=== PATIENT | female | born 1985 | race Caucasian/White ===

== ENCOUNTER → 2019-12-09 15:44 | Outpatient (CLI) | payer OTHER, SELFPAY ==
[2019-12-09 16:13] LABS: Basophils % 0.7 % (0.1-2.0); Eosinophils # 0.1 K/mm3 (0.0-0.4); Eosinophils % 1.9 % (0.1-12.0); Hematocrit 41.3 % (37.0-47.0); Hemoglobin 13.5 g/dL (12.2-16.2); Lymphocytes # 1.6 K/mm3 (0.7-4.5); Mean Corpuscular HGB Conc 32.6 g/dL (31.8-35.4); Mean Corpuscular Volume 88.9 fl (81-99); Mean Platelet Volume 7.7 fl (7.4-10.4); Monocytes # 0.2 K/mm3 (0.1-1.0); Monocytes % 4.4 % (1.7-9.3); Neutrophils # 3.4 K/mm3 (1.8-7.8); Platelet Count 243 K/mm3 (142-424); Red Blood Count 4.65 M/mm3 (4.20-5.40); Red Cell Distribution Width 13.6 % (11.5-17.5); White Blood Count 5.3 K/mm3 (4.8-10.8)
[2019-12-11 20:42] LABS: EBV Ab VCA, IgG <18.0 U/mL (0.0-17.9); EBV Ab VCA, IgM <36.0 U/mL (0.0-35.9); EBV Nuclear Antigen Ab, IgG <18.0 U/mL (0.0-17.9)
== END ==
PROVIDERS: PCP Nurse Practitioner Family; Visit Provider Nurse Practitioner Family
DX: J02.9 Acute pharyngitis, unspecified (principal); R68.89 Other general symptoms and signs; R53.83 Other fatigue
CPT/HCPCS: 36415; 85025; 86664; 86665; 87275; 87276

== ENCOUNTER 2020-03-05 11:01 | Emergency (ER) | payer OTHER, SELFPAY ==
[2020-03-05 11:02] VITALS: BP 158/85; PULSE 113; RESP 20; TEMP 36.4; O2SAT 100; BMI 22.2
--- NOTE | 2020-03-05 11:21 | CT_ITS ---
PROCEDURE: CT ABDOMEN PELVIS WO CON CLINICAL INDICATION: kidney stone r/o Right flank pain, lower abdominal pain with vomiting, history kidney stones COMPARISON: No exams were available for comparison TECHNIQUE: Axial images obtained with sagittal and coronal reformats. All CT scans at the facility use one or more dose reduction, viz: automated exposure control, ma/kV adjustment per patient size (including targeted exams where dose is matched to indication, i.e. head), or iterative reconstruction technique. FINDINGS: LOWER THORAX: There is a noncalcified 7 mm nodule in the right middle lobe for which six-month follow-up is suggested. There is mild thickening of the pericardium ABDOMEN & PELVIS: The liver, spleen, adrenal glands have an unremarkable appearance. There are few punctate right renal calculi measuring up to 2 mm in the mid polar region. There is a 2-3 mm calculus within the urinary bladder just to the left of midline. This may be due to recently passed stone. This is also in the region of the left trigone and could be due to a tiny stone at the ureterovesical junction. There is a small amount of fluid in the pelvis. No evidence of appendicitis intestinal obstruction free air or diverticulitis. There is increased soft tissue density in the region of the pancreatic head. This may only be due to a combination of bone opacification of the duodenum and overlying superior mesenteric vein and portal vein. Nonemergent study with pancreatic protocol may confirm this finding if clinically warranted. No acute bony anomalies. IMPRESSION: 1. There is a small stone in the left paracentral aspect of the urinary bladder measuring 2-3 mm and could be due to recently passed stone or a tiny stone at the ureterovesical junction. No hydronephrosis. 2. Punctate right nephrolithiasis 3. Mild amount of fluid in the pelvis 4. Fullness in the pancreatic head which may be better evaluated with nonemergent pancreatic protocol exam Dictated by: Farrukh Jung MD 03/05/2020 12:36 Electronically signed by Farrukh Jung MD in [place] 03/05/2020 12:36
--- NOTE | 2020-03-05 11:23 | PC.NURSE ---
PT STATES THAT SHE IS UNABLE TO URINATE AT THIS TIME AND REQUESTS A LITTLE TIME. A SERUM PREG TEST IS BEING PUT IN AT THIS TIME SO PT CAN HAVE ABD CT.
[2020-03-05 11:28] LABS: Basophils # 0.1 K/mm3 (0-0.2); Basophils % 0.9 % (0.1-2.0); Eosinophils # 0.3 K/mm3 (0.0-0.4); Eosinophils % 3.9 % (0.1-12.0); Hematocrit 40.8 % (37.0-47.0); Hemoglobin 13.9 g/dL (12.2-16.2); Lymphocytes # 2.8 K/mm3 (0.7-4.5); Lymphocytes % 39.3 % (10-50); Mean Corpuscular Hemoglobin 29.6 pg (27.0-31.2); Mean Corpuscular Volume 86.9 fl (81-99); Mean Platelet Volume 7.9 fl (7.4-10.4); Monocytes # 0.2 K/mm3 (0.1-1.0); Monocytes % 3.2 % (1.7-9.3); Neutrophils # 3.8 K/mm3 (1.8-7.8); Neutrophils % 52.7 % (37.0-80.0); Platelet Count 382 K/mm3 (142-424); Red Blood Count 4.69 M/mm3 (4.20-5.40); White Blood Count 7.1 K/mm3 (4.8-10.8)
[2020-03-05 11:31] LABS: Chloride 105 mmol/L (98-107)
[2020-03-05 11:32] LABS: Potassium 3.7 mmoL/L (3.5-5.1); Sodium 135 mmol/L (136-145)
[2020-03-05 11:34] LABS: Alanine Aminotransferase 17 U/L (12-78); Alkaline Phosphatase 50 U/L (38-126); Amylase 43 U/L (30-110); Anion Gap 9.7 mEq/L (5-15); Aspartate Amino Transferase 22 U/L (14-36); Bilirubin,Total 0.4 mg/dl (0.2-1.3); Blood Urea Nitrogen 15 mg/dl (7-17); Carbon Dioxide 24 mmol/L (22.0-30.0); Creatinine Clearance Estimated 125 mL/min (50-200); Estimated Glomerular Filt Rate 95 ml/min (>60); GFR (African American) 115 ML/MIN (>60)
[2020-03-05 11:35] LABS: Albumin Level 4.4 g/dl (3.5-5.0); Albumin/Globulin Ratio 1.7 (1.1-1.8); Calcium 9.5 mg/dl (8.4-10.2); Globulin 2.6 g/dL (1.3-3.2); Glucose 126 mg/dl (74-100); Lipase 54 U/L (23-300)
--- NOTE | 2020-03-05 11:40 | HMH.EDNVD ---
ED Disposition Clinical Impression: Renal colic on right side Disposition: Home, Self-Care Condition on Discharge: Good Instructions: DI for Kidney Stones Additional Instructions: fluids and see urology and use meds as needed Prescriptions: Phenazopyridine HCl [Pyridium 200mg Tablet] 200 pow PO TID #6 tab Prescription Printed Ketorolac Tromethamine [Toradol 10mg tablet] 10 mg PO Q6H 5 Days #10 tab Prescription Printed Referrals: Provider,MD Jovan [Primary Care Provider] - Rah De Paz MD [Staff Physician] - - Critical Care Critical Care Time: No Attestation: On , the high probability of a clinically significant, sudden or life threatening deterioration of the following system(s) required my full and direct attention, intervention and personal management. The time I documented below is in addition to time spent performing reported procedures but includes the following listed in this critical care notation. Medical Decision Making - Medical Records Medical records reviewed: Yes: I reviewed the patient's medical records. - Ian Inquiry Pt receiving controlled substance: No Vital Signs: 03/05/20 11:02 Temperature 97.6 F Temperature Source Oral Pulse Rate [Right] 113 H Respiratory Rate 20 Blood Pressure [Right Arm] 158/85 H Blood Pressure Mean [Right Arm] 109 02 Sat by Pulse Oximetry 100 - Lab Data Lab results reviewed: Yes: I reviewed the patient's lab results. Lab Results 03/05/20 11:15: WBC 7.1, RBC 4.69, Hgb 13.9, Hct 40.8, MCV 86.9, MCH 29.6, MCHC 34.0, RDW 14.0, Plt Count 382, MPV 7.9, Neut % (Auto) 52.7, Lymph % (Auto) 39.3, [place] % (Auto) 3.2, Eos % (Auto) 3.9, Baso % (Auto) 0.9, Neut # (Auto) 3.8, Lymph # (Auto) 2.8, [place] # (Auto) 0.2, Eos # (Auto) 0.3, Baso # (Auto) 0.1, ESR 3 03/05/20 11:15: Sodium 135 L, Potassium 3.7, Chloride 105, Carbon Dioxide 24, Anion Gap 9.7, BUN 15, Creatinine 0.70, Estimated Creat Clear 125, Estimated GFR 95, Est GFR ( Amer) 115, Glucose 126 H, Calcium 9.5, Total Bilirubin 0.4, AST 22, ALT 17, Alkaline Phosphatase 50, C-Reactive Protein 1.1, Total Protein 7.0, Albumin 4.4, Globulin 2.6, Albumin/Globulin Ratio 1.7, Amylase 43, Lipase 54 03/05/20 11:15: Serum HCG, Qual Negative 03/05/20 12:45: Urine Color Yellow, Urine Appearance Cloudy, Urine pH 6.0, Ur Specific [place] >= 1.030, Urine Protein Trace, Urine Glucose (UA) Negative, Urine Ketones Negative, Urine Blood 3+, Urine Nitrate Negative, Urine Bilirubin Negative, Urine Urobilinogen 0.2, Ur Leukocyte Esterase Negative, Urine RBC 20-50, Urine WBC None, Ur Squamous Epith Cells 20-50, Amorphous Sediment 1+, Urine Bacteria None, Urine Mucus Trace 03/05/20 12:45: Urine HCG, Qual Negative Result diagrams: 03/05/20 11:15 03/05/20 11:15 Orders (Tests/Meds): ED MEDICATIONS Generic Name Dose Route Start Last Admin Trade Name Freq PRN Reason Stop Dose Admin Acetaminophen/Codeine Phosphate 1 anna 03/05/20 13:08 Acetaminophen W/Codeine #3 Take Home Pack (6) PO 03/05/20 13:09 ONCE ONE Sodium Chloride 1,000 mls @ 999 mls/hr 03/05/20 11:30 03/05/20 11:24 Sod Chlor 0.9% 1000ml Bag IV 03/05/20 12:30 999 mls/hr .Q1H1M TIMO Administration Ketorolac Tromethamine 30 mg 03/05/20 13:07 Toradol 30mg/Ml Vial IV 03/05/20 13:08 ONCE ONE Phenazopyridine HCl 200 mg 03/05/20 13:07 Pyridium 200mg Tablet PO 03/05/20 13:08 ONCE ONE Tamsulosin HCl 0.4 mg 03/05/20 21:00 Flomax 0.4mg Capsule PO 04/04/20 20:59 HS TIMO Discontinued Medications Generic Name Dose Route Start Last Admin Trade Name Freq PRN Reason Stop Dose Admin Morphine Sulfate 4 mg 03/05/20 11:22 03/05/20 11:24 Morphine 4mg/Ml Syringe IV 03/05/20 11:23 4 mg ONCE ONE Administration Promethazine HCl 12.5 mg 03/05/20 11:21 03/05/20 11:24 Phenergan 25mg/Ml 1ml Vial IV 03/05/20 11:22 12.5 mg ONCE ONE Administration Sodium Chloride 25 ml 03/05/20 11:22 03/05/20 11:24
[2020-03-05 11:41] LABS: HCG Qualitative, Serum Negative (Negative)
[2020-03-05 11:53] LABS: Erythrocyte Sedimentation Rate 3 mm/hr (0-20)
--- NOTE | 2020-03-05 12:06 | PC.NURSE ---
Pt continues to be unable to urinate
--- NOTE | 2020-03-05 12:08 | PC.NURSE ---
Pt to CT
[2020-03-05 12:34] LABS: C-Reactive Protein 1.1 mg/L (0-4)
[2020-03-05 12:50] LABS: Microscopic, Urine URINE MICROSCOPIC (MICROSCOPIC)
[2020-03-05 12:52] LABS: Appearance,Urine CLOUDY (Clear); Bilirubin,Urine Negative (Negative); Blood, Urine 3+ (Negative); Color,Urine YELLOW (Yellow); Glucose,Urine (UA) Negative (Negative); Ketones,Urine Negative (Negative); Leukocyte Esterase,Urine Negative (Negative); Nitrate,Urine Negative (Negative); Protein,Urine TRACE (Negative); Specific Gravity, Urine >= 1.030 (1.005-1.030); Urobilinogen,Urine 0.2 EU/dl (0.2)
[2020-03-05 12:54] LABS: Urine Pregnancy, HCG Qual. Negative (Negative)
[2020-03-05 12:59] LABS: Amorphous Sediment,Urine 1+ /lpf; Mucus,Urine Trace /lpf; RBC,Urine 20-50 #/hpf (0-3); Squamous Epithelial Cell,Urine 20-50 #/hpf (0-5)
[2020-03-05 13:14] VITALS: BP 140/85; PULSE 80; RESP 18; TEMP 36.8; O2SAT 98
[2020-03-17 18:26] LABS: Ca oxalate dihydrate 20%; Composition SEE BELOW:; Specimen Type NOT PROVIDED
[2020-03-17 18:27] LABS: Photo TO FOLLOW
== END 2020-03-05 13:25 | disposition home or self-care (01) ==
PROVIDERS: Emergency Provider Emergency Medicine
DX: N23 Unspecified renal colic (principal)
CPT/HCPCS: 74176; 80053; 81001; 81025; 82150; 82370; 83690; 84703; 85025; 85651; 86140; 96365; 96375; 99283

== ENCOUNTER 2021-08-29 18:16 | Emergency (ER) | payer OTHER, SELFPAY ==
[2021-08-29 19:30] VITALS: BP 93/62; PULSE 133; RESP 20; TEMP 37.6; O2SAT 98; BMI 22.6
--- NOTE | 2021-08-29 19:38 | HMH.EDUTC ---
[facility] [place] Clinical Impression: Strep throat Disposition: Home, Self-Care Condition on Discharge: Good Instructions: Strep Throat, DI for Strep Throat Additional Instructions: Drink plenty of fluids. Take tylenol or ibuprofen for pain or fever. Take the medications as directed. Follow up with your regular doctor. GO TO THE ER FOR ANY WORSENING SYMPTOMS Quarantine until you know the results of your covid-19 test. If it is positive, the health department should call you and give you further instructions about your length of Quarantine and other things. Notify your school or workplace of your results and follow their instructions regarding return to work/school. Prescriptions: Ondansetron [Zofran 4mg ODT] 4 mg PO Q8HP PRN #20 tab PRN Reason: Nausea Prescription Printed Amoxicillin [Amoxicillin 500mg Tab] 500 mg PO TID 10 Days #30 tab Prescription Printed predniSONE [Deltasone 10mg tablet] 10 mg PO BID 3 Days #6 tab Transmission Status: Received by [facility] #[id number] Referrals: Carter Apple MD [Primary Care Provider] - Time of Disposition: 20:38 Medical Decision Making - Medical Records Medical records reviewed: No: I reviewed the patient's medical records. - Ian Inquiry Pt receiving controlled substance: No Vital Signs: 08/29/21 19:30 08/29/21 21:04 Temperature 99.7 F H 99.7 F H Temperature Source Oral Pulse Rate 133 H Pulse Rate [Right] 133 H Respiratory Rate 20 20 Blood Pressure 93/62 L Blood Pressure [Right Arm] 93/62 L Blood Pressure Mean [Right Arm] 72 02 Sat by Pulse Oximetry 98 - Lab Data Lab results reviewed: Yes: I reviewed the patient's lab results. Lab Results 08/29/21 20:06: Strep Scn Rapid [facility] Positive A 08/29/21 20:08: Chlamy pneumoniae PCR Not detected, Adenovirus (PCR) Not detected, B. pertussis DNA (PCR) Not detected, Coronavirus OC43 (PCR) Not detected, Coronavirus HKU1 (PCR) Not detected, Coronavirus 229E (PCR) Not detected, SARS-CoV-2 (PCR) Detected A, Coronavirus NL63 (PCR) Not detected, Human Metapneumovir PCR Not detected, Influenza A (H1) PCR Not detected, Influ A (H1N1/09) PCR Not detected, Influenza A (H3) PCR Not detected, Influenza Type A (PCR) Not detected, Influenza Type B (PCR) Not detected, M. pneumoniae (PCR) Not detected, Parainfluenza 1 (PCR) Not detected, Parainfluenza 2 (PCR) Not detected, Parainfluenza 3 (PCR) Not detected, Parainfluenza 4 (PCR) Not detected, RSV (PCR) Not detected, Entero/Rhino (PCR) Not detected 08/29/21 21:05: Urine Color Dark yellow, Urine Appearance Cloudy, Urine pH 5.5, Ur Specific [place] 1.025, Urine Protein Negative, Urine Glucose (UA) Negative, Urine Ketones Large, Urine Blood Negative, Urine Nitrate Negative, Urine Bilirubin 1+ A, Urine Urobilinogen 0.2, Ur Leukocyte Esterase Negative Orders (Tests/Meds): ED MEDICATIONS Discontinued Medications Generic Name Dose Route Start Last Admin Trade Name Freq PRN Reason Stop Dose Admin Acetaminophen 975 mg 08/29/21 20:25 08/29/21 20:30 Acetaminophen 325mg Tab PO 08/29/21 20:26 975 mg ONCE ONE Administration Amoxicillin 500 mg 08/29/21 20:38 08/29/21 20:55 Amoxicillin 500mg Capsule PO 08/29/21 20:39 500 mg ONCE ONE Administration [facility] [place] HPI - General Stated complaint: bodyaches, cough Time Seen by Provider: 08/29/21 19:38 Mode of Arrival: Ambulatory Source of Information: Patient Limitations: No Limitations Description of Symptoms (Recalled from Triage Doc. by RN): pt c/o body aches, chills and a cough. HEENT Symptoms (Recalled from RN notes): No Resp Symptoms (Recalled from RN notes): Yes (cough) Skin Symptoms (Recalled from RN notes): No MS Symptoms (Recalled from RN notes): No Functional Status (Recalled from RN notes): wnl - History of Present Illness Provider Complaint: She states that since last night, she has felt bad, had body aches, had a dry cough. Her 2 daughters have recently had sim
[2021-08-29 20:20] LABS: UTC Strep Screen (Rapid) Positive (Negative)
[2021-08-29 20:33] LABS: Adenovirus,PCR Not Detected (NotDetected); Bordetella Pertussis Not Detected (NotDetected); Chlamydophila Pneumoniae, PCR Not Detected (NotDetected); Coronavirus 229E Not Detected (NotDetected); Coronavirus NL63 Not Detected (NotDetected); Coronavirus OC43 Not Detected (NotDetected); Coronovirus HKU1,PCR Not Detected (NotDetected); Human Metapneumovirus Not Detected (NotDetected); Influenza A, PCR Not Detected (NotDetected); Influenza AH1, 2009 Not Detected (NotDetected); Influenza AH1, PCR Not Detected (NotDetected); Influenza AH3,PCR Not Detected (NotDetected); Influenza B, PCR Not Detected (NotDetected); Mycoplasma Pneumoniae, PCR Not Detected (NotDetected); Parainfluenza 1, PCR Not Detected (NotDetected); Parainfluenza 2, PCR Not Detected (NotDetected); Parainfluenza 3, PCR Not Detected (NotDetected); Parainfluenza 4, PCR Not Detected (NotDetected); Respiratory Syncytial Virus Not Detected (NotDetected); Rhinovirus/Enterovirus Not Detected (NotDetected)
[2021-08-29 21:04] VITALS: BP 93/62; PULSE 133; RESP 20; TEMP 37.6
[2021-08-29 21:06] LABS: Apearance,Urine Cloudy (Clear); Color,Urine Dark Yellow (Yellow); PH,Urine 5.5 (5.0-8.5)
[2021-08-29 21:07] LABS: Bilirubin,Urine 1+ (Negative); Blood, Urine Negative (Negative); Glucose,Urine (UA) Negative (Negative); Ketones,Urine Large (Negative); Protein,Urine Negative (Negative); Specific Gravity, Urine 1.025 (1.005-1.030); UTC Leukocyte Esterase,Urine Negative (Negative); UTC Nitrate,Urine Negative (Negative); Urobilinogen,Urine 0.2 EU/dl (0.2)
[2021-08-29 22:15] LABS: Coronavirus 19, PCR Detected (NotDetected)
== END 2021-08-29 21:09 | disposition home or self-care (01) ==
PROVIDERS: Emergency Provider Nurse Practitioner Family; PCP Family Medicine
DX: U07.1 COVID-19 (principal); J02.0 Streptococcal pharyngitis
CPT/HCPCS: 81003; 87581; 87632; 87798; 87880; 99203; C9803; G0463; U0003; U0005

== ENCOUNTER 2021-09-05 14:14 | Emergency (ER) | payer OTHER, SELFPAY ==
[2021-09-05] VITALS (7 sets, daily range): BP systolic 93–101; BP diastolic 56–66; PULSE 90–108; RESP 18; TEMP 36.8–37.4; O2SAT 93–96; BMI 21.9
--- NOTE | 2021-09-05 14:56 | XR_ITS ---
PROCEDURE INFORMATION: Exam: XR Chest Exam date and time: 09/05/2021 2:56 PM Age: 35 years old Clinical indication: Cough TECHNIQUE: Imaging protocol: XR of the chest. Views: 1 view. COMPARISON: No relevant prior studies available. FINDINGS: Lungs: Right lower lung airspace disease most likely representing pneumonia. Pleural spaces: Unremarkable. No pleural effusion. No pneumothorax. Heart/Mediastinum: Unremarkable. No cardiomegaly. Bones/joints: Unremarkable. IMPRESSION: Right lower lung airspace disease most likely representing pneumonia. A 6 week follow-up standing PA and lateral chest radiograph is recommended.
--- NOTE | 2021-09-05 14:58 | PC.NURSE ---
Spoke with heather from [facility] to request chest xray
--- NOTE | 2021-09-05 15:13 | HMH.EDGENADL ---
ED Disposition Clinical Impression: COVID Community acquired pneumonia Qualifiers: Laterality: right Lung location: lower lobe of lung Qualified Code(s): J18.9 - Pneumonia, unspecified organism Disposition: Home, Self-Care Condition on Discharge: Good Instructions: Pneumonia-Adult Prescriptions: Albuterol Sulfate [Albuterol Sulfate Hfa] 2 puff IH Q4HP PRN #1 each PRN Reason: Wheezing Transmission Status: Pending to [email or web address] # Albuterol Sulfate [Albuterol 0.083% 2.5mg/3mL neb] 2.5 mg IH Q6 #30 ml Transmission Status: Pending to [email or web address] # Doxycycline Monohydrate [Doxycycline [place] 100mg Tab] 100 mg PO Q12 #20 tab Transmission Status: Pending to [email or web address] # Referrals: Carter Apple MD [Primary Care Provider] - - Critical Care Critical Care Time: No Attestation: On 09/05/21, the high probability of a clinically significant, sudden or life threatening deterioration of the following system(s) required my full and direct attention, intervention and personal management. The time I documented below is in addition to time spent performing reported procedures but includes the following listed in this critical care notation. Medical Decision Making - Medical Records Medical records reviewed: Yes: I reviewed the patient's medical records. - Ian Inquiry Pt receiving controlled substance: No Vital Signs: 09/05/21 14:38 09/05/21 15:00 09/05/21 15:28 Temperature 99.3 F Temperature Source Oral Pulse Rate 102 H 101 H Pulse Rate [Right Radial] 101 H Respiratory Rate 18 Blood Pressure 101/65 L 100/56 L Blood Pressure [Right Arm] 98/66 L Blood Pressure Mean 74 64 Blood Pressure Mean [Right Arm] 76 Blood Pressure Source [Right Arm] Automatic Cuff Blood Pressure Position [Right Arm] Supine 02 Sat by Pulse Oximetry 96 94 L 96 Oxygen Delivery Method Room Air 09/05/21 15:30 09/05/21 16:00 09/05/21 16:30 Temperature Temperature Source Pulse Rate 90 108 H 90 Pulse Rate [Right Radial] Respiratory Rate 18 18 Blood Pressure 93/63 L 95/56 L Blood Pressure [Right Arm] Blood Pressure Mean 72 70 Blood Pressure Mean [Right Arm] Blood Pressure Source [Right Arm] Blood Pressure Position [Right Arm] 02 Sat by Pulse Oximetry 94 L 95 93 L Oxygen Delivery Method - Lab Data Lab Results 09/05/21 15:30: WBC 2.1 L, RBC 4.57, Hgb 13.0, Hct 37.9, MCV 83.0, MCH 28.6, MCHC 34.4, RDW 13.5, Plt Count 128 L, MPV 8.9, Neut % (Auto) 52.5, Lymph % (Auto) 43.5, [place] % (Auto) 3.4, Eos % (Auto) 0.1, Baso % (Auto) 0.5, Neut # (Auto) 1.1 L, Lymph # (Auto) 0.9, [place] # (Auto) 0.1, Eos # (Auto) 0.0, Baso # (Auto) 0.0 09/05/21 15:30: Sodium 134 L, Potassium 3.4 L, Chloride 99, Carbon Dioxide 28, Anion Gap 10.4, BUN 5 L, Creatinine 0.60, Estimated Creat Clear 142, Estimated GFR 113, Est GFR ( Amer) 137, Glucose 94, Calcium 8.3 L, Total Bilirubin 0.2, AST 36, ALT 8 L, Alkaline Phosphatase 54, Total Protein 6.3, Albumin 3.8, Globulin 2.5, Albumin/Globulin Ratio 1.5 Result diagrams: 09/05/21 15:30 09/05/21 15:30 Orders (Tests/Meds): ED MEDICATIONS Discontinued Medications Generic Name Dose Route Start Last Admin Trade Name Freq PRN Reason Stop Dose Admin Dexamethasone Sodium Phosphate 10 mg 09/05/21 14:56 09/05/21 15:17 Dexamethasone 4mg/Ml 5ml Mdv IV 09/05/21 14:57 10 mg ONCE ONE Administration Sodium Chloride 1,000 mls @ 999 mls/hr 09/05/21 15:00 09/05/21 15:18 Sod Chlor 0.9% 1000ml Bag IV 09/05/21 16:00 999 mls/hr .Q1H1M TIMO Administration Ketorolac Tromethamine 30 mg 09/05/21 14:56 09/05/21 15:17 Ketorolac 30mg/Ml Vial IV 09/05/21 14:57 30 mg ONCE ONE Administration Ondansetron HCl 4 mg 09/05/21 14:56 09/05/21 15:17 Ondansetron 4mg/2ml Vial IV 09/05/21 14:57 4 mg ONCE ONE Administration ORDERS Category Date Time Status XR chest portable Stat Exams 09/05/21
--- NOTE | 2021-09-05 15:34 | PC.NURSE ---
Pt is in room resting
[2021-09-05 15:54] LABS: Basophils % 0.5 % (0.1-2.0); Eosinophils % 0.1 % (0.1-12.0); Hematocrit 37.9 % (37.0-47.0); Lymphocytes # 0.9 K/mm3 (0.7-4.5); Lymphocytes % 43.5 % (10-50); Mean Corpuscular HGB Conc 34.4 g/dL (31.8-35.4); Mean Corpuscular Hemoglobin 28.6 pg (27.0-31.2); Mean Platelet Volume 8.9 fl (7.4-10.4); Monocytes # 0.1 K/mm3 (0.1-1.0); Monocytes % 3.4 % (1.7-9.3); Neutrophils # 1.1 K/mm3 (1.8-7.8); Neutrophils % 52.5 % (37.0-80.0); Platelet Count 128 K/mm3 (142-424); Red Blood Count 4.57 M/mm3 (4.20-5.40); Red Cell Distribution Width 13.5 % (11.5-17.5); White Blood Count 2.1 K/mm3 (4.8-10.8)
[2021-09-05 15:57] LABS: Chloride 99 mmol/L (98-107); Sodium 134 mmol/L (136-145)
[2021-09-05 15:58] LABS: Potassium 3.4 mmoL/L (3.5-5.1)
[2021-09-05 16:00] LABS: Alanine Aminotransferase 8 U/L (12-78); Albumin Level 3.8 g/dl (3.5-5.0); Albumin/Globulin Ratio 1.5 (1.1-1.8); Alkaline Phosphatase 54 U/L (38-126); Aspartate Amino Transferase 36 U/L (14-36); Bilirubin,Total 0.2 mg/dl (0.2-1.3); Blood Urea Nitrogen 5 mg/dl (7-17); Creatinine Clearance Estimated 142 mL/min (50-200); Estimated Glomerular Filt Rate 113 ml/min (>60); GFR (African American) 137 ML/MIN (>60); Globulin 2.5 g/dL (1.3-3.2); Total Protein,Serum 6.3 g/dl (6.3-8.2)
[2021-09-05 16:01] LABS: Anion Gap 10.4 mEq/L (5-15); Calcium 8.3 mg/dl (8.4-10.2); Carbon Dioxide 28 mmol/L (22.0-30.0); Glucose 94 mg/dl (74-100)
== END 2021-09-05 18:04 | disposition home or self-care (01) ==
PROVIDERS: Emergency Provider Emergency Medicine; PCP Family Medicine
DX: U07.1 COVID-19 (principal); J12.82 Pneumonia due to coronavirus disease 2019
CPT/HCPCS: 71045; 80053; 85025; 96365; 96375; 99282; J2405

== ENCOUNTER 2022-01-27 10:39 | Emergency (ER) | payer OTHER, SELFPAY ==
[2022-01-27 11:30] VITALS: BP 104/63; PULSE 104; RESP 20; TEMP 36.8; O2SAT 97; BMI 22.3
--- NOTE | 2022-01-27 11:40 | HMH.EDUTC ---
[facility] [place] Disposition Clinical Impression: COVID-19 Pharyngitis Qualifiers: Pharyngitis/tonsillitis etiology: unspecified etiology Qualified Code(s): J02.9 - Acute pharyngitis, unspecified Disposition: Home, Self-Care Condition on Discharge: Good Instructions: Sore Throat, DI for Pharyngitis/Tonsillopharyngitis -- Adult Additional Instructions: Drink plenty of fluids. Take tylenol or ibuprofen for pain or fever. Take the medications as directed. Follow up with your regular doctor. GO TO THE ER FOR ANY WORSENING SYMPTOMS Prescriptions: Promethazine/Dextromethorphan [Promethazine-Dm Syrup] 5 ml PO Q6HP PRN #240 ml PRN Reason: Cough Transmission Status: Received by [facility] Amoxicillin [Amoxicillin 875MG Tab] 875 mg PO Q12H #20 tab Transmission Status: Received by [facility] methylPREDNISolone [Medrol] 4 mg PO DIRECTED 6 Days #21 packet Transmission Status: Received by [facility] Referrals: Edilia Madsen APRN [Primary Care Provider] - Forms: Work/School Release Time of Disposition: 12:34 Medical Decision Making - Medical Records Medical records reviewed: No: I reviewed the patient's medical records. - Ian Inquiry Pt receiving controlled substance: No Vital Signs: 01/27/22 11:30 01/27/22 12:33 Temperature 98.2 F 98.2 F Temperature Source Oral Pulse Rate 104 H Pulse Rate [Left] 104 H Respiratory Rate 20 20 Blood Pressure 104/63 L Blood Pressure [Right Arm] 104/63 L Blood Pressure Mean [Right Arm] 76 02 Sat by Pulse Oximetry 97 - Lab Data Lab results reviewed: Yes: I reviewed the patient's lab results. Lab Results 01/27/22 12:15: Influenza Type A Ag Negative, Influenza Type B Ag Negative 01/27/22 12:39: Chlamy pneumoniae PCR Not detected, Adenovirus (PCR) Not detected, B. pertussis DNA (PCR) Not detected, Coronavirus OC43 (PCR) Not detected, Coronavirus HKU1 (PCR) Not detected, Coronavirus 229E (PCR) Not detected, SARS-CoV-2 (PCR) Detected A, Coronavirus NL63 (PCR) Not detected, Human Metapneumovir PCR Not detected, Influenza A (H1) PCR Not detected, Influ A (H1N1/09) PCR Not detected, Influenza A (H3) PCR Not detected, Influenza Type A (PCR) Not detected, Influenza Type B (PCR) Not detected, M. pneumoniae (PCR) Not detected, Parainfluenza 1 (PCR) Not detected, Parainfluenza 2 (PCR) Not detected, Parainfluenza 3 (PCR) Not detected, Parainfluenza 4 (PCR) Not detected, RSV (PCR) Not detected, Entero/Rhino (PCR) Not detected 01/27/22 12:45: Group A Strep Rapid Negative Orders (Tests/Meds): ORDERS Category Date Time Status Strep Screen Confirmation Stat Micro 01/27/22 12:45 Received [facility] [place] HPI - General Stated complaint: congestion, fever, sore throat Time Seen by Provider: 01/27/22 11:40 Mode of Arrival: Ambulatory Source of Information: Patient Limitations: No Limitations Description of Symptoms (Recalled from Triage Doc. by RN): pt c/o a sore throat, chills, body aches and nasal congestion x2 days. HEENT Symptoms (Recalled from RN notes): Yes Resp Symptoms (Recalled from RN notes): No Skin Symptoms (Recalled from RN notes): No MS Symptoms (Recalled from RN notes): No Functional Status (Recalled from RN notes): wnl - History of Present Illness Provider Complaint: She states that for the past 3 days she has had low grade fever, chills, body aches, sore throat and malaise. - Related Data Previous Rx's Medication Instructions Recorded Ketorolac Tromethamine [Toradol 10 mg PO Q6H 5 Days #10 tab 03/05/20 10mg tablet] Albuterol Sulfate [Albuterol 2.5 mg IH Q6 #30 ml 09/05/21 0.083% 2.5mg/3mL neb] Albuterol Sulfate [Albuterol 2 puff IH Q4HP PRN #1 each 09/05/21 Sulfate Hfa] Amoxicillin [Amoxicillin 875MG 875 mg PO Q12H #20 tab 01/27/22 Tab] Promethazine/Dextromethorphan 5 ml PO Q6HP PRN #240 ml 01/27/22 [Promethazine-Dm Syrup] methylPREDNISolone [Medrol] 4 mg PO DIRECTED 6 Days #21 01/27/22 packet
[2022-01-27 12:18] LABS: UTC Influenza A Antigen Negative (Negative)
[2022-01-27 12:19] LABS: UTC Influenza B Antigen Negative (Negative)
[2022-01-27 12:33] VITALS: BP 104/63; PULSE 104; RESP 20; TEMP 36.8
[2022-01-27 12:50] LABS: Adenovirus,PCR Not Detected (NotDetected); Bordetella Pertussis Not Detected (NotDetected); Chlamydophila Pneumoniae, PCR Not Detected (NotDetected); Coronavirus 229E Not Detected (NotDetected); Coronavirus NL63 Not Detected (NotDetected); Coronavirus OC43 Not Detected (NotDetected); Coronovirus HKU1,PCR Not Detected (NotDetected); Human Metapneumovirus Not Detected (NotDetected); Influenza A, PCR Not Detected (NotDetected); Influenza AH1, 2009 Not Detected (NotDetected); Influenza AH1, PCR Not Detected (NotDetected); Influenza AH3,PCR Not Detected (NotDetected); Influenza B, PCR Not Detected (NotDetected); Mycoplasma Pneumoniae, PCR Not Detected (NotDetected); Parainfluenza 1, PCR Not Detected (NotDetected); Parainfluenza 2, PCR Not Detected (NotDetected); Parainfluenza 3, PCR Not Detected (NotDetected); Parainfluenza 4, PCR Not Detected (NotDetected); Respiratory Syncytial Virus Not Detected (NotDetected); Rhinovirus/Enterovirus Not Detected (NotDetected)
[2022-01-27 12:59] LABS: Strep Scrn Group A (Rapid) Negative (Negative)
[2022-01-27 14:55] LABS: Coronavirus 19, PCR Detected (NotDetected)
== END 2022-01-27 13:07 | disposition home or self-care (01) ==
PROVIDERS: Emergency Provider Nurse Practitioner Family; PCP Nurse Practitioner Family
DX: U07.1 COVID-19 (principal); J02.9 Acute pharyngitis, unspecified
CPT/HCPCS: 87430; 87581; 87632; 87798; 87804; 99213; C9803; G0463; U0003; U0005

== ENCOUNTER 2022-07-17 18:53 | Emergency (ER) | payer OTHER, SELFPAY ==
[2022-07-17 19:10] VITALS: BP 125/72; PULSE 94; RESP 21; TEMP 37.1; O2SAT 97; BMI 22.4
--- NOTE | 2022-07-17 19:12 | EXP.UTC ---
Discharge Plan Disposition Patient Disposition: Home, Self-Care Condition: Good Prescriptions Prescriptions: New azithromycin [Zithromax] 250 mg tablet 250 mg PO UD DOSE PK Qty: 6 0RF Rx Instructions: Take two (2) tablets today, then one (1) tablet days #2 thru #5 benzonatate [benzonatate] 100 mg capsule 100 mg PO TIDP PRN (Reason: Cough) Qty: 30 0RF methylprednisolone 4 mg Tablets,Dose Pack 4 mg PO DIRECTED Qty: 21 0RF Referrals Follow up/Referrals: Edilia Madsen APRN [Primary Care Provider] - See instructions Activity Restrictions/Add. Instructions Additional Instructions/Restrictions: Drink plenty of fluids. Take tylenol or ibuprofen for pain or fever. Take the medications as directed. Follow up with your regular doctor. GO TO THE ER FOR ANY WORSENING SYMPTOMS Clinical Impressions Clinical Impression: Bronchitis Instructions Patient Instructions: DI for Acute Bronchitis Discharge ED Provider: Alberto Dial [facility] General Stated complaint: congestion,SOB Cough Time Seen by Provider: 07/17/22 19:12 History of Present Illness Provider Complaint: She states that for the past 3 days she has had a worsening cough, chest congestion and sinus congestion. She denies any fever or chills. She usually gets bronchitis this time of year and that is what she feels like is happening now. Related Data Previous Rx's Medication Instructions Recorded azithromycin 250 mg tablet 250 mg PO UD DOSE PK #6 tabs 07/17/22 (Zithromax) benzonatate 100 mg capsule 100 mg PO TIDP PRN Cough #30 caps 07/17/22 methylprednisolone 4 mg tablets in 4 mg PO DIRECTED #21 tabs 07/17/22 a dose pack Allergies Allergy/AdvReac Type Severity Reaction Status Date / Time No Known Allergies Allergy Verified 03/07/20 08:30 [facility] Medical History History of anemia Kidney stone Urinary tract infection Surgical History History of tonsillectomy Social History Smoking Status: Unknown if ever smoked alcohol intake: never current occupational status: employed Travel in the last 8 weeks: None ROS Obtained: Yes All systems reviewed & no additional complaints except as documented Constitutional Constitutional: Reports chills and Reports fever(s) Eyes Eyes: Denies eye discharge ENT Ears, Nose, Mouth, and Throat: Reports as per HPI Cardiovascular Cardiovascular: Denies chest pain Respiratory Respiratory: Denies chest congestion and Reports cough Gastrointestinal Gastrointestingal: Reports nausea; Denies abdominal pain, constipation, cramping, diarrhea or vomiting Musculoskeletal Musculoskeletal: Denies arthralgias Integumentary/Breasts Skin/Breast: Denies rash Neurologic Neurologic: Denies paresthesias Physical Exam General General appearance: alert and in no apparent distress Head Head exam: atraumatic, normocephalic and normal inspection Eye Eye exam: Present normal appearance, PERRL and EOMI ENT ENT exam: Present mucous membranes moist and normal external ear exam Expanded ENT Exam TM/Canal exam: Bilateral TM: erythema and bulging Nose exam: Absent sinus tenderness Mouth exam: Present normal external inspection; Absent drooling Teeth exam: Present normal inspection Throat exam: Present tonsillar erythema, tonsillomegaly and tonsillar exudate Neck Neck exam: Present normal inspection, full ROM and trachea midline; Absent tenderness, meningismus or lymphadenopathy Chest Chest inspection: Present normal inspection and symmetric chest wall rise; Absent tenderness Respiratory Respiratory exam: Present normal lung sounds bilaterally; Absent respiratory distress, wheezes or stridor Cardiovascular Cardiovascular exam: Present regular rate and normal rhythm; Absent systolic murmur or diastolic murmur Abdominal Exam Abdom
[2022-07-17 19:42] VITALS: BP 125/72; PULSE 94; RESP 21; TEMP 37.1; O2SAT 97
== END 2022-07-17 19:48 | disposition home or self-care (01) ==
PROVIDERS: Emergency Provider Nurse Practitioner Family; PCP Nurse Practitioner Family
DX: R06.02 Shortness of breath (principal); R09.89 Other specified symptoms and signs involving the circulatory and respiratory systems; R50.9 Fever, unspecified; R11.0 Nausea; R05.9 Cough, unspecified; D64.9 Anemia, unspecified; Z79.52 Long term (current) use of systemic steroids; Z79.899 Other long term (current) drug therapy; Z87.442 Personal history of urinary calculi
CPT/HCPCS: 99213; G0463

== ENCOUNTER 2024-06-13 09:47 | Emergency (ER) | payer OTHER, SELFPAY ==
[2024-06-13 10:56] VITALS: BP 94/70; PULSE 73; RESP 18; TEMP 36.8; O2SAT 100; BMI 21.4
--- NOTE | 2024-06-13 10:58 | ED_ITS ---
Discharge Plan Disposition Patient Disposition: Still a Patient Condition: Fair Chief Complaint: Urogenital-Female Prescriptions Prescriptions: No Action azithromycin [Zithromax] 250 mg tablet 250 mg PO UD DOSE PK Qty: 6 0RF Rx Instructions: Take two (2) tablets today, then one (1) tablet days #2 thru #5 benzonatate [benzonatate] 100 mg capsule 100 mg PO TIDP PRN (Reason: Cough) Qty: 30 0RF methylprednisolone 4 mg Tablets,Dose Pack 4 mg PO DIRECTED Qty: 21 0RF Referrals Follow up/Referrals: Edilia Madsen APRN [Primary Care Provider] - See instructions Clinical Impressions Clinical Impression: Acute left flank pain Print Language Print Language: Hungarian Discharge ED Provider: Delon Garland [facility] General Stated complaint: poss kidney stone nausea Time Seen by Provider: 06/13/24 10:58 History of Present Illness Provider Complaint: She states that for the past 2 days she has had left flank pain. She has a history of kidney stones and that is what she feels like is happening now. She request a ct scan. Related Data Previous Rx's ?Medication ?Instructions ?Recorded azithromycin 250 mg tablet 250 mg PO UD DOSE PK #6 tabs 07/17/22 (Zithromax) benzonatate 100 mg capsule 100 mg PO TIDP PRN Cough #30 caps 07/17/22 methylprednisolone 4 mg tablets in 4 mg PO DIRECTED #21 tabs 07/17/22 a dose pack Allergies Allergy/AdvReac Type Severity Reaction Status Date / Time No Known Allergies Allergy Verified 03/07/20 08:30 [facility] Disclaimer: The information contained in this section may have been updated after the patient was seen, as this information can be updated by other users. Medical History History of anemia Kidney stone Urinary tract infection Surgical History History of tonsillectomy Social History Smoking Status: Never smoker alcohol intake: never current occupational status: employed Travel in the last 8 weeks: None ROS Obtained: Yes All systems reviewed & no additional complaints except as documented Constitutional Constitutional: Denies chills, Denies fever(s) and Reports poor appetite ENT Ears, Nose, Mouth, and Throat: Denies dizziness and Denies sore throat Cardiovascular Cardiovascular: Denies dyspnea Respiratory Respiratory: Denies chest congestion, Denies cough and Denies dyspnea Gastrointestinal Gastrointestingal: Reports as per HPI and abdominal pain Genitourinary Female Genitourinary: Denies difficulty voiding, Reports dysuria, Reports hematuria, Reports urinary frequency, Denies urinary incontinence, Denies urinary hesitancy and Reports urinary urgency Musculoskeletal Musculoskeletal: Denies arthralgias Integumentary/Breasts Skin/Breast: Denies rash Neurologic Neurologic: Denies dizziness Physical Exam General General appearance: alert and in no apparent distress Head Head exam: atraumatic and normocephalic Eye Eye exam: Present normal appearance, PERRL and EOMI ENT ENT exam: Present normal exam, mucous membranes moist, TM's normal bilaterally and normal external ear exam Neck Neck exam: Present normal inspection, full ROM and trachea midline; Absent tenderness, meningismus or lymphadenopathy Chest Chest inspection: Present normal inspection and symmetric chest wall rise; Absent tenderness Respiratory Respiratory exam: Present normal lung sounds bilaterally; Absent respiratory distress, wheezes or stridor Cardiovascular Cardiovascular exam: Present regular rate, normal rhythm and normal heart sounds Abdominal Exam Abdominal exam: Present soft and normal bowel sounds; Absent distention, tenderness, guarding, rebound, rigidity, incision, psoas sign, obturator sign, heel tap sign, Alebrto's sign, Rovsing's sign or tenderness at McBurney's Point Extremities Exam Extremities exam: Present normal inspection, full ROM and normal capillary refill; Absent tenderness, edema, joint swelling, calf tenderness or cyanosis Back Exam Back exam: Present normal inspection and full ROM; Absent tenderness, CVA tenderness (R) or CVA tenderness (L) Neurological Exam Neurological exam: Present alert, oriented X3 and normal gait Psychiatric Psychiatric exam: Present normal affect and normal mood Skin Skin exam: Present warm, dry, intact and normal color Lymphatic Lymphatic Findings: no adenopathy Medical Decision Making Medical Records Medical records reviewed: No I reviewed the patient's medical records. Ian Inquiry Pt receiving controlled substance: No Lab Data Lab results reviewed: Yes I reviewed the patient's lab results. 06/13/24 11:16 Orders (Tests/Meds): ORDERS Category Date Time Status Urine Culture Stat Micro 06/13/24 10:51 Received
[2024-06-13 11:00] LABS: Apearance,Urine Cloudy (Clear); Bilirubin,Urine 1+ (Negative); Blood, Urine 4+ (Negative); Color,Urine Amber (Yellow); Glucose,Urine (UA) Negative (Negative); Ketones,Urine Negative (Negative); PH,Urine 8.5 (5.0-8.5); Protein,Urine 1+ (Negative); Specific Gravity, Urine 1.015 (1.005-1.030); UTC Leukocyte Esterase,Urine Negative (Negative); UTC Nitrate,Urine Negative (Negative); Urobilinogen,Urine 1 EU/dl (0.2)
[2024-06-13 11:24] LABS: Basophils # 0.1 K/mm3 (0-0.2); Basophils % 1.6 % (0.1-2.0); Eosinophils # 0.1 K/mm3 (0.0-0.4); Eosinophils % 1.7 % (0.1-12.0); Hematocrit 44.1 % (37.0-47.0); Hemoglobin 13.5 g/dL (12.2-16.2); Lymphocytes # 1.4 K/mm3 (0.7-4.5); Lymphocytes % 30.4 % (10-50); Mean Corpuscular HGB Conc 30.5 g/dL (31.8-35.4); Mean Corpuscular Hemoglobin 27.9 pg (27.0-31.2); Mean Corpuscular Volume 91.4 fl (81-99); Monocytes # 0.2 K/mm3 (0.1-1.0); Monocytes % 4.9 % (1.7-9.3); Neutrophils # 2.8 K/mm3 (1.8-7.8); Neutrophils % 61.4 % (37.0-80.0); Platelet Count 273 K/mm3 (142-424); Red Blood Count 4.83 M/mm3 (4.20-5.40); Red Cell Distribution Width 14.5 % (11.5-17.5); White Blood Count 4.5 K/mm3 (4.8-10.8)
[2024-06-13 11:27] VITALS: BP 95/64; PULSE 70; RESP 16; TEMP 36.9; O2SAT 98; BMI 21.4
[2024-06-13 11:27] LABS: Albumin Level 4.4 g/dl (3.5-5.0); Chloride 105 mmol/L (98-107)
[2024-06-13 11:28] LABS: Potassium 4.4 mmoL/L (3.5-5.1); Sodium 135 mmol/L (136-145)
[2024-06-13 11:30] LABS: Blood Urea Nitrogen 9 mg/dl (7-17); Creatinine Clearance Estimated 112 mL/min (50-200); Estimated Glomerular Filt Rate 93 ml/min (>60); GFR (African American) 113 ML/MIN (>60)
[2024-06-13 11:31] LABS: Alanine Aminotransferase 17 U/L (12-78); Albumin/Globulin Ratio 1.7 (1.1-1.8); Alkaline Phosphatase 50 U/L (38-126); Anion Gap 7.4 mEq/L (5-15); Aspartate Amino Transferase 23 U/L (14-36); Bilirubin,Total 0.7 mg/dl (0.2-1.3); Calcium 8.9 mg/dl (8.4-10.2); Carbon Dioxide 27 mmol/L (22.0-30.0); Globulin 2.6 g/dL (1.3-3.2); Glucose 98 mg/dl (74-100)
[2024-06-13] MEDS: KETOROLAC 30MG/ML VIAL 15 MG IV (11:31)
[2024-06-13] MEDS: LACTATED RINGERS 1000ML 1,000 ML 999 ML IV (11:32)
[2024-06-13 11:38] LABS: HCG Qualitative, Serum Negative (Negative)
--- NOTE | 2024-06-13 12:12 | PC.NURSE ---
DR HERNANDEZ AT BEDSIDE
[2024-06-13 12:29] VITALS: BP 96/69; PULSE 67; RESP 17; TEMP 36.9; O2SAT 100
--- NOTE | 2024-06-13 12:32 | PC.NURSE ---
Reviewed pt's d/c instructions and medication on d/c. IV removed.
== END 2024-06-13 12:33 | disposition home or self-care (01) ==
LOC: UTC 09:59 → ER 11:10
PROVIDERS: Nurse Practitioner Family; Emergency Provider Emergency Medicine; PCP Nurse Practitioner Family
DX: R10.32 Left lower quadrant pain (principal); M54.59 Other low back pain; R30.0 Dysuria; R35.0 Frequency of micturition; Z87.442 Personal history of urinary calculi
CPT/HCPCS: 80053; 81003; 84703; 85025; 87086; 96361; 96374; 99284; J1885; J7120